=== PATIENT | male | born 1975 | race Caucasian/White ===

== ENCOUNTER 2017-07-04 16:25 | Inpatient (IN) | payer MEDICAID ==
[~2017-07-04] VITALS: Ht 170.2 cm; Wt 115.7 kg
--- NOTE | ~2017-07-04 | DS ---
PATIENT:ROCKY VUONG :73 MEDICAL RECORD: [id number] DISCHARGE SUMMARY ADMISSION DATE: 07/06/17 DISCHARGE DATE: DISCHARGE DIAGNOSES: 1. Asthma exacerbation. 2. Chest pain. HOSPITAL COURSE: Mr. Vuong presents with shortness of breath and chest pain; however, cardiac catheterization was normal. He was seen by pulmonary, put on antibiotics as well as steroids as well as updrafts. His asthma stabilized. He was discharged home with Augmentin and a Medrol Dosepak. No cardiac followup is necessary. TRANSINT:[id number] Voice Confirmation ID: [id number] DOCUMENT ID: [id number] CARLOS JACKSON MD CC: [id number] DICTATION DATE: 07/08/17938 ZOOKEEPER: 07/08/17 1251 ADM IN [id number] [place] [address]
--- NOTE | ~2017-07-04 | DS ---
PATIENT:ROCKY BELLAMY :73 MEDICAL RECORD: [id number] DISCHARGE SUMMARY ADMISSION DATE: 07/04/17 DISCHARGE DATE: DATE OF DISCHARGE: 07/05/2017 DISCHARGE DIAGNOSES: 1. Chest pain. 2. Shortness of breath. 3. Asthma. 4. Normal cardiac catheterization this admission. HOSPITAL COURSE: This is a gentleman who presents with shortness of breath and chest pain. He does have significant asthma and this was in contraction with an asthma attack. He underwent cardiac catheterization revealing no significant disease. His symptomatology is all secondary to asthma. No other cardiac workup or treatment is necessary. TRANSINT:[id number] Voice Confirmation ID: [id number] DOCUMENT ID: [id number] CARLOS JACKSON MD CC: [id number] DICTATION DATE: 07/05/17 1140 MANAGER PMO: 07/06/17 0446 ADM IN [facility] [address] [id number]
--- NOTE | ~2017-07-04 | OP ---
PATIENT NAME: ROCKY BELLAMY MEDICAL RECORD: [id number] :73 LOCATION:D.M2 D.2114 ADMISSION DATE:07/04/17 SURGEON: CARLOS JACKSON MD DATE OF OPERATION: 07/05/2017 PROCEDURES: 1. Left heart catheterization. 2. Selective coronary angiography. 3. Left ventriculogram. INDICATION: Chest pain compatible with angina and shortness of breath, dyspnea on exertion. PROCEDURE IN DETAIL: After informed consent was obtained and after a detailed explanation of the risks, benefits as well as alternative therapies, the patient elected to proceed with angiogram. The right radial area was prepped and draped in normal sterile fashion. The right radial artery was cannulated via modified Seldinger technique with placement of 5-Vietnamese sheath. All catheters exchanged through this sheath. FINDINGS: Left ventriculogram was performed in the standard 30-degree RODRIGUEZ view reveals good cardiac wall motion, ejection fraction is 60%. SELECTIVE CORONARY ANGIOGRAPHY: Left main, left anterior descending, left circumflex, right coronary, only mild irregularities, nothing greater than 20%, no flow-limiting stenosis. OVERALL IMPRESSION: Minimal coronary artery disease is present. No flow-limiting stenosis. Preserved left ventricular function. Symptomatology is secondary to asthma, noncardiac symptomatology, no other cardiac workup treatment is necessary at this time. TRANSINT:[id number] Voice Confirmation ID: [id number] DOCUMENT ID: [id number] CARLOS JACKSON MD CC: [id number] DICTATION DATE: 07/05/17 1141 MASH GRINDER: 07/05/17 1307 ADM IN [id number] [place] [address]
--- NOTE | ~2017-07-04 | HEMODYNAMI ---
PATIENT:ROCKY BELLAMY MEDICAL RECORD: [id number] : 73 [id number] ADMISSION DATE: 07/04/17 Generatedon:07/05/201711:39 Patient name: ROCKY BELLAMY Patient #: [id number] SSN: Sandip OB: 1975 Date of study: 07/05/2017 Page: Of Hemodynamic Procedure Report Patient Data Patient Demographics Procedure consent was obtained First Name: ROCKY Gender: Male Last Name: JOSESITO : 1975 Patient #: [id number] Age: 42 year(s) Race: Unknown Additional ID: [id number] Contact details Address: [address] [place] [address] State: [place] City: [place] Zip code: [address] Admission Admission Data Admission Date: 07/04/2017 Admission Time: 16:25 Room #: D.2114 Lab Results Lab Result Date: 07/05/2017 Lab Result Time: 0:00 CBC Name Units Result Min Max Hemoglobin g/dl 14.6 --(-*--)-- 13.5 17.5 Procedure Procedure Types Cath Procedure Diagnostic Procedure LHC LHC w/Coronaries Miscellaneous Procedures Moderate Sedation up to 15 minutes Procedure Description Procedure Date Procedure Date: 07/05/2017 Procedure Start Time: 11:30 Procedure End Time: 11:37 Procedure Staff Name Function Wallace Silveira MD Performing Physician Kim Mir RT Scrub Dirk Summers RN Nurse Hallie Calzada RT Monitor Procedure Data Cath Procedure Fluoroscopy Diagnostic fluoroscopy Total fluoroscopy Time: 1.6 time: 1.6 min min Diagnostic fluoroscopy Total fluoroscopy dose: dose: 1367 mGy 1367 mGy Contrast Material Contrast Material Type Amount (ml) Isovue 300 65 Entry Location Entry Primary Successful Side Size Upsize Upsize Entry Closure Mccollum ccessful Closure Location (Fr) 1 (Fr) 2 (Fr) Remarks Device Remarks Radial Right 6 Fr Mechanical artery Short Compression Estimated blood loss: 5 ml Diagnostic catheters Device Type Used For End Catheter Placement Diagnostic Terumo Multi-vessel Optitorque 5Fr Crane 4.5 Angiography catheter Diagnostic Infinity 5Fr Right Coronary AR 2 MOD catheter Angiography Procedure Complications No complications Procedure Medications Medication Administration Route Dosage Oxygen NC 4 l/min Lidocaine 2% added to field 20 Heparin Flush Bag added to field 2 bags (1000units/500ml NS) 0.9% NaCl I.V. 100 ml/hr Versed I.V. 1 mg Fentanyl I.V. 50 mcg Versed I.V. 1 mg Fentanyl I.V. 50 mcg Radial Cocktail I.A. 1 syringe (Verapomil 2mg/Nitro 400mcg/Heparin 1500units) Versed I.V. 1 mg Fentanyl I.V. 50 mcg Hemodynamics Rest HGB: 14.6 (g/dl) Heart Rate: 106 (bpm) Pressure Samples Time Site Value (mmHg) Purpose Heart Use Rate(bpm) 11:32 LV 58/10,11 Snapshot 101 Snapshots Pre Cath Intra NCS Post Cath Vital Signs Time Heart Resp SPO2 NIBP Rhythm Pain Sedation Rate (ipm) (%) (mmHg) Status Level (bpm) 11:00:53 102 21 92 106/72(93) NSR 0 (11) 10(A) , No pain 11:05:17 104 23 90 109/66(90) NSR 0 (11) 10(A) , No pain 11:09:45 101 18 90 104/58(70) NSR 0 (11) 10(A) , No pain 11:14:09 103 28 93 101/59(85) NSR 0 (11) 10(A) , No pain 11:18:36 102 18 91 110/67(90) NSR 0 (11) 10(A) , No pain 11:22:56 106 26 92 115/73(95) NSR 0 (11) 10(A) , No pain 11:27:18 103 26 91 113/73(95) NSR 0 (11) 10(A) , No pain 11:31:42 97 19 92 110/65(83) NSR 0 (11) 10(A) , No pain 11:36:04 102 19 91 102/55(85) NSR 0 (11) 10(A) , No pain Medications Time Medication Route Dose Verified Delivered Reason Notes Effectiveness by by 10:59:27 Oxygen NC 4 l/min Wallace Cavazos used for Jordana Summers RN procedure 10:59:34 Lidocaine 2% added 20ml Wallacemadalyn Gonsalez for local to vial Jordana Silveira MD anesthetic field 10:59:40 Heparin Flush added 2 bags Wallace Gonsalez used for Bag to Jordana Silveira MD procedure (1000units/500ml field NS) 10:59:48 0.9% NaCl I.V. 100 Wallace Cavazos Per ml/hr Jordana Summers RN physician 11:25:43 Versed I.V. 1 mg Wallace Cavazos for sedation Jordana Summers RN 11:25:49 Fentanyl I.V. 50 mcg Wallace Cavazos for sedation Jordana Summers RN 11:30:24 Versed I.V. 1 mg Wallace Caavzos for sedation Jordana Summers RN 11:30:27 Fentanyl I.V. 50 mcg Wallace Cavazos for sedation Jordana Summers RN 11:31:34 Radial Cocktail I.A. 1 Wallace Gonsalez for (Verapomil syringe Jordana Silveira MD vasodilation 2mg/Nitro 400mcg/Heparin 1500units) 11:34:04 Versed I.V. 1 mg Wallace Cavazos for sedation Jordana Summers RN 11:34:08 Fentanyl I.V. 50 mcg Wallace Cavazos for sedation Jordana Summers RN Procedure Log Time Note 10:43:34 Dirk Summers RN sent for patient. Start room use. 10:43:35 Time tracking: Regular hours 10:43:39 Plan of Care:Hemodynamics will remain stable., Cardiac rhythm will remain stable., Comfort level will be maintained., Respiratory function will remain adequate., Patient/ family verbilizes understanding of procedure., Procedure tolerated without complication., Recovers from procedure without complications.. 10:51:10 Patient received from PCU to CCL 2 Alert and oriented. Tansferred to table in Supine position. 10:51:11 Warm blankets applied, and anna marie hugger turned on for patient comfort. 10:51:11 Correct patient and procedure confirmed by team. 10:51:12 Signed procedure consent form obtained from patient. 10:51:13 ECG and BP/O2 sat monitors applied to patient. 10:51:14 Full Disclosure recording started 10:59:24 Vital chart was started 10:59:27 Oxygen 4 l/min NC was administered by Dirk Summers RN; used for procedure; 10:59:34 Lidocaine 2% 20ml vial added to field was administered by Wallace Silveira MD; for local anesthetic; 10:59:40 Heparin Flush Bag (1000units/500ml NS) 2 bags added to field was administered by Wallace Silveira MD; used for procedure; 10:59:48 0.9% NaCl 100 ml/hr I.V. was administered by Dirk Summers RN; Per physician; 11:02:52 Baseline sample Acquired. 11:03:10 Rhythm: sinus tachycardia 11:03:19 H&P Date Dictated: 07/05/2017 New H&P dictated by physician.. 11:03:21 Pre-procedure instructions explained to patient. 11:03:22 Pre-op teaching completed and patient verbalized understanding. 11:03:23 Family in waiting room. 11:03:26 Patient NPO since Midnight. 11:03:43 Is the patient allergic to Iodine/contrast media? No. 11:03:44 Was the patient premedicated? No 11:03:45 Is patient on blood thinner?No 11:03:47 Patient diabetic? Yes. 11:03:52 If diabetic: On Metformin? No 11:03:55 Previous problem with sedation/anesthesia? No ? 11:03:57 Snore? Yes 11:03:58 Sleep apnea? No 11:03:59 Deviated septum? No 11:04:00 Opens mouth fully? Yes 11:04:01 Sticks out tongue? Yes 11:04:05 Airway obstruction? Yes asthma 11:04:07 Dentures? No ? 11:04:11 Pre procedure: right dorsailis pedis pulse 1+ Palpable, but thready & weak; easily obliterated 11:04:13 Pre procedure: left dorsailis pedis pulse 1+ Palpable, but thready & weak; easily obliterated 11:04:16 Patient pain scale 0/10 ?. 11:04:21 IV patent on arrival in left forearm with 0.9% NaCl at [facility]. 11:05:44 Lab Result : Hemoglobin 14.6 g/dl 11:05:48 Lab results completed and on chart. 11:05:56 Right Radial & Right Groin area was prepped with chlora-prep and draped in sterile fashion 11:05:56 Alarms reviewed by Stevan Stafford 11:05:57 Sharps counted by scrub and verified by R.N. 11:11:54 Zero performed for pressure channel P1 11:24:19 Physician arrived 11::20 --------ALL STOP TIME OUT------ 11:24:20 Final Timeout: patient, procedure, and site verified with staff and physician. All members of the team are in agreement. 11:24:23 Right Radial & Right Groin site verified by team. 11:24:26 Physical assessment completed. ASA score P 2 - A patient with mild systemic disease as per Wallace Silveira MD. 11:24:29 Sedation plan: IV Moderate Sedation Versed, Fentanyl 11:24:51 Use device set Radial Dx 11:24:52 Acist Syringe opened to sterile field. 11:24:53 Medline Cath Pack opened to sterile field. 11:24:53 Bag Decanter opened to sterile field. 11:24:54 Terumo 6Fr Slender Glidesheath opened to sterile field. 11:24:54 St Crispin 260cm J .035 wire opened to sterile field. 11:24:55 Acist Hand Control opened to sterile field. 11:24:55 Acist Manifold opened to sterile field. 11:24:55 Tegaderm 4 x 4 opened to sterile field. 11:24:56 MBrace Wrist Support opened to sterile field. 11:25:43 Versed 1 mg I.V. was administered by Dirk Summers RN; for sedation; 11:25:49 Fentanyl 50 mcg I.V. was administered by Dirk Summers RN; for sedation; 11:30:09 Procedure started. 11:30:24 Versed 1 mg I.V. was administered by Dirk Summers RN; for sedation; 11:30:26 Local anesthetic to right radial artery with Lidocaine 2% by Wallace Silveira MD.INITIAL ACCESS ONLY 11:30:27 Fentanyl 50 mcg I.V. was administered by Dirk Summers RN; for sedation; 11:30:42 A 6 Fr Short sheath was inserted into the Right Radial artery 11::01 A Diagnostic Terumo Optitorque 5Fr Crane 4.5 catheter was advanced over the wire and used for Multi-vessel Angiography. 11:31:21 LV hemodynamics recorded. 11:31:23 LV gram done using RODRIGUEZ 11::25 Injector settings: Ml/sec: 5, Volume: 15, 11:31:34 Radial Cocktail (Verapomil 2mg/Nitro 400mcg/Heparin 1500units) 1 syringe I.A. was administered by Wallace Silveira MD; for vasodilation; 11:32:19 EF : 60 % 11:32:33 LCA angiography performed. 11:32:36 Injector settings: Ml/sec: 3, Volume: 6, 11:33:33 RCA angiography performed. 11:33:35 Injector settings: Ml/sec: 3, Volume: 6, 11:34:03 Catheter removed. 11:34:04 Versed 1 mg I.V. was administered by Dirk Summers RN; for sedation; 11:34:08 Fentanyl 50 mcg I.V. was administered by Dirk Summers RN; for sedation; 11:34:15 A Diagnostic Infinity 5Fr AR 2 MOD catheter was advanced over the wire and used for Right Coronary Angiography. 11:35:09 RCA angiography performed. 11:35:12 Injector settings: Ml/sec: 3, Volume: 6, 11:35:43 Catheter removed. 11:36:23 Terumo TR Band Standard opened to sterile field. 11:36:32 Sheath removed intact; hemostasis achieved with Mechanical Compression to the Right Radial artery. 11:36:34 Procedure ended.(Physican Out) 11:36:42 Fluoroscopy time 01.60 minutes. 11:36:47 Fluoroscopy dose: 1367 mGy 11:36:47 Flurop Dose total: 1367 11:36:51 Contrast amount:Isovue 300 65ml. 11:36:53 Sharps counted by scrub and verified by R.N. 11:36:54 Insertion/operative site no bleeding no hematoma. 11:37:03 Post right radial artery:stable 11:37:04 Post Procedure Pulses reassessed and unchanged 11:37:05 TR band inflated with 11cc of air. 11:37:07 Post procedure rhythm: unchanged. 11:37:10 Estimated blood loss: 5 ml 11:37:11 Post procedure instruction explained to patient.Patient verbalizes understanding. 11:37:11 Patient needs reinforcement of post procedure teaching. 11:37:21 Procedure type changed to Cath procedure, Diagnostic procedure, LHC, LHC w/Coronaries, Miscellaneous Procedures, Moderate Sedation up to 15 minutes 11:37:23 Procedure and supply charges have been captured, reviewed, submitted and are correct. 11:37:26 Procedure Complication : No complications 11:37:29 Vital chart was stopped 11:37:29 See physician's report for complete and final results. 11:37:[address] [facility]. 11:37:[address] [facility] with Stretcher. 11:37:43 Procedure ended. 11:37:43 Full Disclosure recording stopped 11:37:47 End room use (Document Last) Device Usage Item Name Manufacture Quantity Catalog Hospital Part Current Minimal Lot# / Number Charge Number Stock Stock Serial# Code Acist Acist 1 24424 442147 217635 266895 20 Syringe Medical Systems Inc Medline Cardinal 1 [id number] 18490 944981 5 Cath Pack Health Bag Microtek 1 2001S 718241 34742 529398 5 DecXDN/3[employer] Terumo 6Fr Terumo 1 [id number] 585371 443871 331127 [address] St Crispin 1 035835 981458 909430 695143 30 260cm J .035 wire Acist Hand Acist 1 92383 324076 752248 933574 5 Control Medical Systems Inc Acist Acist 1 99344 200329 081138 780619 5 Manifold Medical Systems Inc Tegaderm 4 3M 1 1626W 140896 196321 884457 5 x 4 MBrace Advanced 1 140-0250-00 047802 34529 313931 5 Wrist Vascular Support Dynamics Diagnostic Terumo 1 40-4602 127757 375761 498117 5 Terumo Optitorque 5Fr Crane 4.5 catheter Diagnostic Cardinal 1 [id number] 383699 308919 515609 20 [employer] 5Fr AR 2 MOD catheter Terumo TR Terumo 1 [id number] 423246 359763 063128 40 Band Standard Signature Audit [place] Stage Time Signature Unsigned Intra-Procedure 07/05/2017 Hallie Calzada 11:39:17 AM RT(R) Signatures Monitor : Hallie Calzada RT Signature : Date : Time : [facility] [address] [place] [address]
[2017-07-04] MEDS ORDERED: PROAIR HFA8.5 GM INH (16:47)
[2017-07-04 16:48] VITALS: BP 137/92; BMI 40.0
[2017-07-04] MEDS ORDERED: LISINOPRIL10 MG PO (16:48)
[2017-07-04] MEDS ORDERED: BREO ELLIPTA 21 EACH (17:08)
[2017-07-04] MEDS ORDERED: TOPROL XL25 MG PO (17:09)
[2017-07-04] MEDS ORDERED: HYDROCHLOROTH12.5 M1 PO (17:09)
[2017-07-04] MEDS ORDERED: GLYBURIDE5 M1 PO (17:09)
[2017-07-04] MEDS ORDERED: CENTRUM SILVER1 TA1 PO (17:10)
[2017-07-04] MEDS ORDERED: BIOTIN5 MG PO (17:11)
[2017-07-04 20:50] VITALS: BP 150/99
[2017-07-05 04:00] VITALS: BP 113/76
--- NOTE | 2017-07-05 07:35 | NUR ---
ASSESSMENT DONE. DENIES NEEDS.
[2017-07-05 08:00] VITALS: BP 111/76
--- NOTE | 2017-07-05 08:36 | NUR ---
SITTING UP IN BED. RESP WITH EASE. NO DISTRESS NO COMPLAINTS. WILL CONTINUE TO MONITOR.
[2017-07-05 09:53] LABS: CARBON DIOXIDE 30.5 mmol/L (21.0-32.0); CREATININE - SERUM 1.2 mg/dL (0.6-1.3); POTASSIUM - SERUM 4.5 mmol/L (3.5-5.1)
--- NOTE | 2017-07-05 10:53 | NUR ---
TO CATH LEAB PER BED
[2017-07-05 16:11] VITALS: BP 119/88
--- NOTE | 2017-07-05 17:46 | NUR ---
WITHOUT CHANGES OR DISTRESS NOTED AT THIS TIME. DENIES NEEDS.
--- NOTE | 2017-07-05 18:09 | NUR ---
Patient Name: ROCKY BELLAMY Admission Status: Urgent Accout number: [id number] Admission Date: 07-04-2017 : 1975 Admission Diagnosis: Attending: RICK JACKSON Current LOS: 1 Anticipated DC Date: 07-05-2017 Planned Disposition: Home Primary [place] [employer] [place] Discharge Planning Comments: * Is the patient Alert and Oriented? Yes 0 * How many steps to enter\exit or inside your home? NONE 0 * PCP DR. LAWRENCE MEYERS, [place] 0 * Pharmacy [facility] IN [place] 0 * Preadmission Environment Home with Family 0 * ADLs Independent 0 * Equipment Glucometer Nebulizer Shower Chair 0 * Other Equipment MEDICAL EQUIPMENT PROVIDER - [facility] OR ANY OTHER MEDICAL EQUIPMENT PROVIDER IN [place] 0 * List name and contact numbers for known caregivers / representatives who currently or will assist patient after discharge: SKY BELLAMY, SPOUSE, 0 * Community resources currently utilized None 0 * Please name any agencies selected above. NONE 0 * Additional services required to return to the preadmission environment? Yes * Can the patient safely return to the preadmission environment? Yes 0 * Has this patient been hospitalized within the prior 30 days at any hospital? No 0 CM MET WITH PT IN ROOM TO DISCUSS DISCHARGE PLANNING AND NEEDS. PT REPORTS LIVING AT HOME INDEPENDENTLY WITH HIS SPOUSE. PT HAS GLUCOMETER, SHOWER CHAIR AND NEBLUIZER WITH PREFERRED MEDICAL EQUIPMENT PROVIDER TO BE [facility] OR OTHER PROVIDER IN [place]. PT HAS NO OUTSIDE SERVICES ASSISTING IN THE HOME. CM DISCUSSED AVAILABILITY OF HOME HEALTH, REHAB SERVICES AND MEDICAL EQUIPMENT. PT THINKS HE NEEDS OXYGEN FOR DISCHARGE AND WANTS HIS LUNGS CHECKED TO DETERMINE WHY HE CANNOT BREATHE PRIOR TO DISCHARGE. OXYGEN TESTING PROVIDED TO CM, PT 87% ON ROOM AIR, WAITING ON PULMONARY CONSULT. PT REPORTS HIS SPOUSE IS HERE TO PICK HIM UP FOR DISCHARGE HOME. IF LONGER THAN 48 HOURS FROM TIME OF CURRENT OXYGEN TESTING TO TIME OF DISCHARGE, PT WILL NEED NEW OXYGEN TESTING (LAST TESTING 07-05-17, INDICATING 87% OXYGEN SATURATION ON ROOM AIR). CM TO ARRANGE OXYGEN FOR DISCHARGE HOME WITH QUALIYING SATURATIONS AND PHYSICIAN ORDERS. Die Storage Worker: Praveen Wiley
[2017-07-05 19:00] VITALS: BP 134/94
[2017-07-06] VITALS: BP 129/83
[2017-07-06 04:00] VITALS: BP 97/67
[2017-07-06 04:47] LABS: BASOPHILS 0.1 % (0-2); EOSINOPHILS 0.1 % (0-7); HEMATOCRIT 42.3 % (42.0-54.0); HEMOGLOBIN 13.8 g/dL (13.5-17.5); IMMATURE GRANULOCYTES 0.8 % (0-5); LYMPHOCYTES 11.2 % (15-50); MCH 29.2 pg (26.0-34.0); MCHC 32.6 g/dL (31.0-37.0); MCV 89.6 fL (80.0-100.0); MEAN PLATELET VOLUME 9.3 fL (7.4-10.4); MONOCYTES 5.1 % (2-11); NEUTROPHILS 82.7 % (40-80); PLATELET COUNT 288 10x3/uL (130-400); RBC 4.72 10x6/uL (4.20-6.10); RDW 12.7 % (11.5-14.5); WBC 12.6 10x3/uL (4.8-10.8)
--- NOTE | 2017-07-06 05:14 | NUR ---
RESTING WELL THIS SHIFT, NO C/O OR DISTRESS NOTED. VSS, AFEBRILE. NO NEEDS VOICED. WILL CONT TO MONITOR.
[2017-07-06 05:19] LABS: ALBUMIN 3.2 g/dL (3.4-5.0); ALKALINE PHOSPHATASE 74 U/L (46-116); ALT (SGPT) 37 U/L (10-68); BILIRUBIN - TOTAL 0.32 mg/dL (0.2-1.3); CALC OSMOLALITY 289 mosm/kg (275-300); CALCIUM 8.4 mg/dL (8.5-10.1); CARBON DIOXIDE 30.4 mmol/L (21.0-32.0); CHLORIDE - SERUM 101 mmol/L (98-107); CREATININE - SERUM 1.1 mg/dL (0.6-1.3); GLUCOSE 335 mg/dL (74-106); POTASSIUM - SERUM 4.9 mmol/L (3.5-5.1); PRO BNP 98 pg/mL (0-125); PROTEIN - SERUM 7.7 g/dL (6.4-8.2); SODIUM 137 mmol/L (136-145); UREA NITROGEN 22 mg/dL (7-18); eGFR NON AFRICAN AMERICAN 78 mL/min (90-120)
[2017-07-06 05:44] LABS: ERYTHROCYTE SEDIMENTATION RATE 30 mm/hr (0-15)
--- NOTE | 2017-07-06 07:04 | NUR ---
AM ROUNDS- PT IN BED, RECEIVING AN UPDRAFT AT THIS TIME. PT DENIES ANY NEEDS, RESP EVEN AND UNLABORED ON 6L OXIMIZER. LT FA IV SL. BED LOW AND WHEELS LOCKED, BEDSIDE RAILS X2, CALL LIGHT IN REACH, NAD NOTED, WILL CONTINUE TO MONITOR.
--- NOTE | 2017-07-06 09:37 | NUR ---
AM MEDS GIVEN AT THIS TIME. PT C/O OF NOSE BEING VERY DRY AND SORE FROM USING OXYGEN. PROVIDED HIM WITH NASAL SPRAY. PT DENIES ANY OTHER NEEDS AT THIS TIME. CALL LIGHT IN REACH, NAD NOTED, WILL CONTINUE TO MONITOR.
[2017-07-06 09:48] VITALS: BP 130/93
[2017-07-06 12:29] VITALS: BP 131/74
--- NOTE | 2017-07-06 13:00 | NUR ---
PT FIXING TO GET IN THE SHOWER, RESP EVEN AND NONLABORED. PT DENIES ANY NEEDS AT THIS TIME. CALL LIGHT IN REACH, NAD NOTED, WILL CONTINUE TO MONITOR.
[2017-07-06 15:11] VITALS: BP 113/60
[2017-07-06 20:00] VITALS: BP 155/969
--- NOTE | 2017-07-06 22:30 | NUR ---
PT IV BED COMES RED AND SWOLLEN AFTER ZITHROMAX INFUSED. LEFT FOREARM SL REMOVED AND PT RESITED TO THE LEFT FOREARM WITH A 22 GA ANGIOCATH X1 STICK. PT TOLERATED WELL.
[2017-07-07] VITALS: BP 133/83
--- NOTE | 2017-07-07 07:15 | NUR ---
AM ROUNDS- PT SITTING UP IN BED, WATCHING TV. PT DENIES ANY NEEDS AT THIS TIME, RESP EVEN NONLABORED. LT FA IV PATENT. BED LOW AND WHEELS LOCKED, BEDSIDE RAILS X2. CALL LIGHT IN REACH, NAD NOTED, IWLL CONTINUE TO MONITOR.
[2017-07-07 08:00] VITALS: BP 140/94
--- NOTE | 2017-07-07 09:12 | NUR ---
AM MEDS GIVEN AT THIS TIME. PT DENIES ANY NEEDS AT THIS TIME. CALL LIGHT IN REACH, NAD NOTED, WILL CONTINUE TO MONITOR.
[2017-07-07 12:00] VITALS: BP 120/85
[2017-07-07 16:00] VITALS: BP 144/97
--- NOTE | 2017-07-07 19:00 | NUR ---
RECEIVED REPORT AND ASSUMED PT CARE AT THIS TIME FROM DAY SHIFT RN.
[2017-07-07 20:00] VITALS: BP 142/97
--- NOTE | 2017-07-07 20:30 | NUR ---
INITIAL ASSESSMENT COMPLETED, VSS, AFEBRILE. O2 2LPM NC, SATS 94%. DENIES ANY C/O PAIN. LEFT FOREARM IV SITE APPEARS WNL. FLUSHES EASILY AND GOOD BLOOD RETURN. CALL LIGHT WITHIN REACH. NO NEEDS VOICED. WILL CONT TO MONITOR.
--- NOTE | 2017-07-07 22:00 | NUR ---
PT SITTING UP IN BED WATCHING TV WITHOUT C/O OR DISTRESS NOTED.
--- NOTE | 2017-07-08 | NUR ---
NO CHANGES NOTED IN ASSESSMENT. RESTING WELL WITHOUT C/O OR DISTRESS NOTED. CALL LIGHT WITHIN REACH. WILL CONT TO MONITOR.
[2017-07-08 04:00] VITALS: BP 135/77
[2017-07-08 05:02] LABS: BASOPHILS 0.1 % (0-2); EOSINOPHILS 0 % (0-7); HEMATOCRIT 41.4 % (42.0-54.0); HEMOGLOBIN 13.9 g/dL (13.5-17.5); IMMATURE GRANULOCYTES 1.5 % (0-5); LYMPHOCYTES 10.7 % (15-50); MCH 29.4 pg (26.0-34.0); MCHC 33.6 g/dL (31.0-37.0); MCV 87.7 fL (80.0-100.0); MEAN PLATELET VOLUME 8.8 fL (7.4-10.4); NEUTROPHILS 75.7 % (40-80); PLATELET COUNT 285 10x3/uL (130-400); RBC 4.72 10x6/uL (4.20-6.10); RDW 12.2 % (11.5-14.5); WBC 10.4 10x3/uL (4.8-10.8)
[2017-07-08 05:15] LABS: CALC OSMOLALITY 288 mosm/kg (275-300); CARBON DIOXIDE 33.7 mmol/L (21.0-32.0); CHLORIDE - SERUM 98 mmol/L (98-107); GLUCOSE 311 mg/dL (74-106); POTASSIUM - SERUM 4.9 mmol/L (3.5-5.1); SODIUM 138 mmol/L (136-145); eGFR NON AFRICAN AMERICAN 87 mL/min (90-120)
[2017-07-08 05:20] LABS: UREA NITROGEN 16 mg/dL (7-18)
--- NOTE | 2017-07-08 07:30 | NUR ---
RECEIVED PT IN BED AAOX4 RESP UNLABORED DENIES ANY NEEDS OR DISCOMFORT NAD NOTED
[2017-07-08 08:00] VITALS: BP 149/100
--- NOTE | 2017-07-08 09:39 | HP ---
PATIENT: ROCKY BELLAMY MEDICAL RECORD: [id number] ACCOUNT: [id number] LOCATION:[address] : 73 ADMISSION DATE: 07/06/17 HISTORY AND PHYSICAL EXAMINATION DIAGNOSES: 1. Shortness of breath. 2. Dyspnea on exertion. 3. Asthma. 4. Chest pain compatible with angina. 5. Hypertension. 6. Diabetes, non-insulin dependent. HISTORY OF PRESENT ILLNESS: This is a gentleman who was set for cardiac catheterization next week due to increasing shortness of breath, dyspnea on exertion and chest pain who had an exacerbation of asthma was given updrafts and admitted in the ER, continued to have shortness of breath and chest pain, he is now transferred here. He has no acute EKG changes. Troponin is normal. PHYSICAL EXAMINATION: GENERAL APPEARANCE: Well-nourished, well-developed, appears stated age. Level of distress, comfortable. PSYCHIATRIC: Mental status, alert, normal affect. Orientation, oriented to time, place and person. EYES: Lids and conjunctiva, noninjected. No discharge, no pallor. ENT: Lips, teeth, gums, normal dentition. Oropharynx, no cyanosis, no pallor. NECK: Carotid arteries, bilateral normal upstroke, no bruits, no thrills. JUGULAR VEINS: No jugular venous pressure or distention. CERVICAL LYMPH NODES: Nontender, nonenlarged. THYROID: Not enlarged. Nontender. No nodules. LUNGS: Respiratory effort, unlabored. CHEST: Normal curvature. No thoracic deformity. No chest wall tenderness. Percussion, resonant. Auscultation, clear. No wheezes, no rales, no rhonchi. CARDIOVASCULAR: Precordial exam, nondisplaced. No heaves or pericardial thrills. Rate and rhythm, regular. Heart sounds, normal S1, normal S2. No S3, no gallop, no rub. Systolic murmur, not heard. Diastolic murmur, not heard. EXTREMITIES: No cyanosis, no edema. Peripheral pulses, full and equal in all extremities, except as noted. No bruits appreciated. ABDOMEN: Soft, nondistended. Normal aorta. No bruit. Nontender. No masses. Liver, nontender, no hepatomegaly. Spleen, nontender, no splenomegaly. MUSCULOSKELETAL: No joint tenderness. No joint swelling. No erythema. NEUROLOGICAL: Normal gait, normal strength, normal tone. SKIN: Warm and dry. REVIEW OF SYSTEMS: The patient reports easy bruising but reports no swollen glands. The patient reports no fever, no night sweats, no significant weight gain, no significant weight loss. No significant exercise tolerance. The patient reports no dry eyes, no irritation, no vision change. Patient reports no difficulty hearing and no ear pain. Patient reports no frequent nose bleeds or nose and sinus problems. Patient reports on arm pain on exertion. No shortness of breath while lying down. No history of heart murmur. Patient reports no cough, no wheezing or coughing up blood. Patient reports no abdominal pain, no vomiting. Normal appetite. No diarrhea and not vomiting blood. No nausea and no constipation. Patient reports no incontinence. No difficulty urinating. No hematuria. No increased frequency. Patient reports HISTORY AND PHYSICAL [id number] MATTUCKS,ROCKY no muscle aches. No weakness, no arthralgias, no back pain. No swelling of the extremities. Patient reports no abnormal mole, no jaundice, no rashes. Reports no loss of consciousness. No weakness and no numbness. No seizures, dizziness, or headaches. The patient reports no depression, no sleep disturbance, feeling safe in a relationship and no alcohol abuse. Patient reports on fatigue. Reports no runny nose or sinus pressure. No itching, no hives, and no frequent sneezing. OVERALL IMPRESSION: Increasing shortness of breath with chest pain. This very well may all be asthma. He has no EKG changes, but due to the persistent symptomatology, we will admit and proceed with coronary angiography. Further care depends upon findings of the angiography. TRANSINT:[id number] Voice Confirmation ID: [id number] DOCUMENT ID: [id number] CARLOS JACKSON MD at 0939 CC: [id number] DICTATION DATE: 07/05/17 1139 MANAGER OF DISASTER RECOVERY: 07/05/17 1159 ADM IN [place] [id number] [place] [address]
[2017-07-08 10:11] LABS: ANA REFLEX - DIRECT Negative (Negative)
[2017-07-08 11:11] LABS: IMMUNOGLOBULIN E 1247 IU/mL (0-100)
[2017-07-08 12:14] VITALS: Ht 170.2 cm; Wt 115.7 kg
[2017-07-08 14:15] LABS: IMMUNOGLOBULIN A 250 mg/dL (90-386); IMMUNOGLOBULIN G 1033 mg/dL (700-1600)
[2017-07-08] MEDS ORDERED: IPRAT-ALBUT 0.5-3 ML UPD (16:25)
--- NOTE | 2017-07-08 16:25 | NUR ---
Patient Name: ROCKY BELLAMY Encounter No: [id number] : 1975 Primary Insurance: [employer] [place] [employer] Anticipated DC Date: 07-08-2017 Planned Disposition: Home DCP follow-up note: CM RECEIVED DISCHARGE ORDER AND OXYGEN TESTING, PT 85% DURING AMBULATION ON ROOM AIR. CM SPOKE TO DR. MINAYA WHO DIRECTED CM TO HAVE ORDER TAKEN TO DR. WISDOM IN CLINIC FOR SIGNATURE. TRUNG ASKED ABOUT DISCHARGE MEDICATIONS, DR. MINAYA DISCUSSED WITH HR GENERALIST NURSE. CM MET WITH PT IN ROOM WHO WOULD LIKE REFERRAL TO [facility] PATIENT AND SPOUSE WILL BE PICKING HIM UP. CM CALLED [facility] PATIENT, , SPOKE TO DINO WHO WILL ARRANGE PORTABLE OXYGEN DELIVERY TO ROOM FOR DISCHARGE HOME TODAY AND FORWARD REFERRAL TO [facility] PATIENT IN [place] FOR FURTHER OXYGEN EQUIPMENT ARRANGEMENTS. CM FAXED OXYGEN REFERRAL TO DINO AT [facility] PATIENT, . [facility] PATIENT TO ARRANGE PORTABLE DELIVERY OF OXYGEN TO PT'S ROOM FOR DISCHARGE HOME TODAY AND [facility] PATIENT, [place] OFFICE, WILL ARRANGE HOME PORTABLE OXYGEN WITH PT AT HOME. Praveen Wiley, CASE MANAGEMENT
[2017-07-08] MEDS ORDERED: MEDROL DOSE PACK4 MG PO (16:28)
[2017-07-08] MEDS ORDERED: AUGMENTIN 500-11 TA1 PO (16:28)
--- NOTE | 2017-07-08 18:30 | NUR ---
REVIEWED DISCCHARGE INSTRUCTIONS WITH PT STATES UNDERSTANDING COPY GIVEN DCD SALINE LOCK TO LAC WITH IV CATHETER INTACT PT DISCHARGED HOME LEFT UNIT VIA W/C IN STABLE CONDITION WITH ALL PERSONAL BELONGINGS
[2017-07-09 13:15] LABS: ANGIOTENSIN CONVERTING ENZYME < 15 U/L (14-82)
[2017-07-09 17:11] LABS: ANCA - ANTIMYELOPEROXIDASE <9.0 U/mL (0.0-9.0); ANCA - ANTIPROTEINASE 3 <3.5 U/mL (0.0-3.5); ANCA - ATYPICAL <1:20 titer (Neg:<1:20); ANCA - CYTOPLASMIC <1:20 titer (Neg:<1:20); ANCA - PERINUCLEAR <1:20 titer (Neg:<1:20)
[2017-07-09 21:08] LABS: CYCLIC CITRULL PEPTIDE IGG/IGA 21 units (0-19)
[2017-07-10 03:08] LABS: MYCOPLASMA PNEUMO IGG 690 U/mL (0-99)
== END 2017-07-08 18:30 | disposition home or self-care (01) | DRG 193 ==
LOC: D.M2 16:25 → OBSVTIME 16:25 → D.M2 16:25 → D.SDCHOLD 07-05 15:56 → D.M2 07-05 15:57
PROVIDERS: Internal Medicine Pulmonary Disease; ADMIT Internal Medicine Interventional Cardiology
PROC: B2151ZZ Fluoroscopy of Left Heart using Low Osmolar Contrast (ICD-10-PCS; 2017-07-05)
PROC: 4A023N7 Measurement of Cardiac Sampling and Pressure, Left Heart, Percutaneous Approach (ICD-10-PCS; 2017-07-05)
PROC: B2111ZZ Fluoroscopy of Multiple Coronary Arteries using Low Osmolar Contrast (ICD-10-PCS; principal; 2017-07-05 08:00)
DX: J18.9 Pneumonia, unspecified organism (principal); J96.01 Acute respiratory failure with hypoxia; J45.901 Unspecified asthma with (acute) exacerbation; R07.9 Chest pain, unspecified; E78.5 Hyperlipidemia, unspecified; I25.10 Atherosclerotic heart disease of native coronary artery without angina pectoris; Z87.891 Personal history of nicotine dependence; E11.9 Type 2 diabetes mellitus without complications; I10 Essential (primary) hypertension